=== PATIENT | female | born 1985 | race Caucasian/White ===

== ENCOUNTER → 2023-05-22 12:54 | Outpatient (REF) | payer BC, SELFPAY | LOC: MRI 3T 12:54 | PROVIDERS: ATTENDING PHYSICIAN Podiatrist Foot & Ankle Surgery; FAMILY PHYSICIAN Family Medicine | DX: M84.374A Stress fracture, right foot, initial encounter for fracture (principal); S93.611D Sprain of tarsal ligament of right foot, subsequent encounter | CPT/HCPCS: 73718 ==